=== PATIENT | female | born 1970 | race Caucasian/White ===

== ENCOUNTER 2021-10-16 12:22 | Outpatient (CLI) | payer BC, SELFPAY | END 2021-10-16 12:23 | disposition home or self-care (01) | LOC: AMB 11-01 13:26 | PROVIDERS: Visit Provider Family Medicine | DX: S89.92XA Unspecified injury of left lower leg, initial encounter (principal); W01.0XXA Fall on same level from slipping, tripping and stumbling without subsequent striking against object, initial encounter; Y92.009 Unspecified place in unspecified non-institutional (private) residence as the place of occurrence of the external cause | CPT/HCPCS: A0425; A0427 ==

== ENCOUNTER 2021-10-26 12:42 | Emergency (ER) | payer BC, SELFPAY ==
[2021-10-26 12:46] VITALS: BP 104/67; PULSE 74; RESP 16; TEMP 36.9; O2SAT 97; BMI 28.8
--- NOTE | 2021-10-26 15:17 | CRLHL7_ITS ---
For Patients: As a result of the Century Cures Act, medical imaging exams and procedure reports are released immediately into your electronic medical record. You may view this report before your referring provider. If you have questions, please contact your health care provider. Indication: Fall on outstretched hand Technique: Three images the right hand and 3 images of the right wrist were acquired Comparison: None Findings: There is no visible acute fracture, dislocation or destructive process. Mild to moderate osteoarthritic changes are noted. There is a well corticated ossific body noted adjacent to the distal ulna. This is probably a congenital finding or a remote posttraumatic finding. This is not associated with acute trauma. Impression: No visible acute fracture, dislocation or destructive process. Chronic findings as above Dictated by Neftali Toribio MD @ 10/26/2021 3:59:41 PM (Electronically Signed)
--- NOTE | 2021-10-26 17:00 | ED.FALL ---
HPI - Fall General Date Seen: 10/26/21 Chief Complaint: Fall/Minor Trauma Stated Complaint: Fall/right wrist Time Seen by Provider: 10/26/21 15:13 Source: patient Mode of arrival: ambulatory Limitations: no limitations History of Present Illness HPI Narrative: This very nice lady, who has recent Achilles surgery, presents here after she fell off of her scooter. She suffered a right wrist injury, she is able to move it pretty well but wanted to get it checked out. She has no numbness and tingling weakness, denies any elbow or shoulder issues associated with this. Her any loss of consciousness or other issue. complaint: fall Fall from: wheelchair Fall witnessed: no Place fall occurred: home Loss of consciousness: No Prolonged down time: no Symptoms prior to fall: none Context: tripped/slipped Location of injury: other Related Data Home Medications Medication Instructions Recorded Confirmed No Known Home Medications 10/26/21 10/26/21 Allergies Allergy/AdvReac Type Severity Reaction Status Date / Time hard alcohol Allergy Unknown Uncoded 10/26/21 12:51 Review of Systems Status of ROS: Reports: 6 or more systems reviewed and unremarkable except as noted in History and below [facility] Social History Smoking Status: Never smoker Do you use any of these nicotine containing products: None Second hand tobacco smoke exposure: No How often do you have a drink containing alcohol: never AUDIT-C Alcohol total score: 0 Non-prescribed substance use: denies use service: No Exam Narrative: Exam Narrative: Nice lady in no apparent distress her right hand shows some mild swelling of the right wrist, her home aide strengths are equal bilaterally, finger abduction 1st finger thumb opposition were normal. Cap refills normal and sensory shows a no deficit noted. Is somewhat tender over the distal ulnar region. But has the wrist dorsiflexion that is normal to approximately 60? and flexion is within 70?. Elbow has full range of motion of flexion extension supination pronation as does her right shoulder. X-rays are done of her wrist which showed no acute bony abnormality by my review, read by Radiology in agreement. Did put her in a thumb spica splint. As there is a possibility of an occult fracture here. I have recommended that if she still has pain in 5 days as she follow-up for recheck. She will be discharged home at this point with ibuprofen and Tylenol. Const: Vital Signs, click to edit/add: Vital Signs - 24 hr 10/26/21 12:46 Temperature 98.4 F Pulse Rate [Pulse Oximeter] 74 Respiratory Rate 16 Blood Pressure [Le ft Upper Arm] 104/67 Pulse Oximetry 97 Oxygen Delivery Me thod Room Air Course Vital Signs Vital signs: Initial Vital Signs Temperature 98.4 F 10/26/21 12:46 Temperature Source Temporal Artery Scan 10/26/21 12:46 Pulse Rate 74 10/26/21 12:46 Pulse Rhythm 10/26/21 12:46 Pulse Strength 3+ Normal 10/26/21 12:46 Respiratory Rate 16 10/26/21 12:46 Blood Pressure 104/67 10/26/21 12:46 Blood Pressure Mean 79 10/26/21 12:46 Blood Pressure Position Sitting 10/26/21 12:46 Pulse Oximetry 97 10/26/21 12:46 Oxygen Delivery Method 10/26/21 12:46 Vital Signs Temperature 98.4 F 10/26/21 12:46 Pulse Rate 74 10/26/21 12:46 Respiratory Rate 16 10/26/21 12:46 Blood Pressure 104/67 10/26/21 12:46 Pulse Oximetry 97 10/26/21 12:46 Oxygen Delivery Method 10/26/21 12:46 Temperature 98.4 F 10/26/21 12:46 Pulse Rate 74 10/26/21 12:46 Respiratory Rate 16 10/26/21 12:46 Blood Pressure 104/67 10/26/21 12:46 Pulse Oximetry 97 10/26/21 12:46 Oxygen Delivery Method 10/26/21 12:46 Discharge Plan Discharge Clinical Impression: Injury of wrist, right Patient Disposition: Home, Self-Care Condition: Stable Instructions: Wrist Injury (ED), Wrist Sprain (ED) Additional Instructions: Home rest follow-up in 5-7 days if increasing pain. Use of splint as needed. Recommended re-x-ray if he still have pain in 5-7 days is sometimes a hairline fracture can be missed. Tylenol Advil for the discomfort. Prescriptions: No Action No Known Home Medications Follow Up/Referrals: Provider,Not a Local [Primary Care Provider] - Stand Alone Forms: [facility] Info Instructions
[2021-10-26 17:02] VITALS: BP 107/74
== END 2021-10-26 17:05 | disposition home or self-care (01) ==
PROVIDERS: Emergency Provider Family Medicine
DX: S69.91XA Unspecified injury of right wrist, hand and finger(s), initial encounter (principal); W05.0XXA Fall from non-moving wheelchair, initial encounter; Y93.9 Activity, unspecified; Y92.9 Unspecified place or not applicable; Y99.9 Unspecified external cause status
CPT/HCPCS: 73110; 73130; 99283